=== PATIENT | male | born 1970 | race Caucasian/White ===

== ENCOUNTER 2018-06-24 13:28 | Emergency (ER) | payer BC ==
[~2018-06-24] VITALS: Ht 180.3 cm; Wt 99.8 kg
[2018-06-24] MEDS ORDERED: LIPITOR20 MG PO (13:39)
[2018-06-24] MEDS ORDERED: OMEPRAZOLE20 MG PO (13:39)
[2018-06-24] MEDS ORDERED: LISINOPRIL20 MG PO (13:39)
[2018-06-24] MEDS ORDERED: ALLEGRA ALLERG180 MG PO (13:40)
== END 2018-06-24 18:49 | disposition home or self-care (01) ==
LOC: ER 13:28
DX: N20.1 Calculus of ureter (principal)